=== PATIENT | female | born 1980 ===

== ENCOUNTER 2017-06-03 06:14 | Emergency (ER) | payer OTHER ==
[2017-06-03 06:25] VITALS: BP 134/86; PULSE 88; RESP 18; TEMP 98.8; O2SAT 100
--- NOTE | 2017-06-03 06:34 | C.PDOC ---
History Of Present Illness 37 year old female presents to the ER with a complaint of a nonproductive cough for the past 3 days, associated with chest wall pain. Denies SOB, nausea, or vomiting. Chief Complaint (Nursing): Cough, Cold, Congestion History Per: Patient History/Exam Limitations: no limitations Onset/Duration Of Symptoms: Days Current Symptoms Are (Timing): Still Present Location Of Pain: Other (Anterior chest wall) Sick Contacts (Context): None Associated Symptoms: Cough. denies: Sputum Ear Symptoms: Bilateral: None Recent travel outside of the [place]: No Past Medical History Reviewed: Historical Data, Nursing Documentation, Vital Signs Vital Signs: Last Vital Signs Temp 98.8 F 06/03/17 06:22 Pulse 88 06/03/17 06:22 Resp 18 06/03/17 06:22 BP 134/86 06/03/17 06:22 Pulse Ox 100 06/03/17 06:44 Family History: States: Unknown Family Hx - Social History Hx Alcohol Use: No Hx Substance Use: No - Immunization History Hx Influenza Vaccination: No Review Of Systems Constitutional: Negative for: Fever, Chills ENT: Negative for: Ear Pain, Ear Discharge Cardiovascular: Negative for: Chest Pain, Palpitations Respiratory: Positive for: Cough. Negative for: Sputum Gastrointestinal: Negative for: Nausea, Vomiting Musculoskeletal: Positive for: Other (Anterior chest wall) Physical Exam - Physical Exam Appears: Non-toxic, No Acute Distress Skin: Normal Color, Warm, Dry Head: Atraumatic, Normacephalic Eye(s): bilateral: Normal Inspection Ear(s): Bilateral: Normal Nose: Normal Oral Mucosa: Moist Throat: Normal, No Erythema, No Exudate Neck: Normal, Supple Chest: Symmetrical, No Tenderness Cardiovascular: Rhythm Regular Respiratory: No Rales, Rhonchi (Occasional), No Wheezing Gastrointestinal/Abdominal: Soft, No Tenderness Neurological/Psych: Oriented x3, Normal Speech ED Course And Treatment O2 Sat by Pulse Oximetry: 100 (room air) Pulse Ox Interpretation: Normal - Radiology CXR: Interpreted by Me, Viewed By Me CXR Interpretation: Yes: No Acute Disease. No: Infiltrates Progress Note: CXR ordered. Disposition - Disposition Referrals: FAMILY PROVIDER,NO [Primary Care Provider] - Disposition: HOME/ ROUTINE Disposition Time: 06:44 Condition: STABLE Additional Instructions: increased fluids by mouth Prescriptions: Azithromycin [Z-Carl] 250 mg PO DAILY #6 tab Ibuprofen [Motrin] 1 tab PO TID PRN #30 tab PRN Reason: Pain Promethazine DM [Phenergan DM Syrup] 5 ml PO QID #120 cup Instructions: Upper Respiratory Infection (ED) Forms: [facility] (Pashto), Gen Discharge Inst [place] Print Language: TURKMEN - POA Present On Arrival: None - Clinical Impression Clinical Impression: Bronchitis, Upper respiratory infection - Scribe Statement The provider has reviewed the documentation as recorded by the Scribspeedy Schilling All medical record entries made by the Sorayaibspeedy were at my direction and personally dictated by me. I have reviewed the chart and agree that the record accurately reflects my personal performance of the history, physical exam, medical decision making, and the department course for this patient. I have also personally directed, reviewed, and agree with the discharge instructions and disposition.
--- NOTE | 2017-06-03 06:36 | C.PDOC ---
History Of Present Illness 37 year old female presents to the ER with a complaint of a nonproductive cough for the past 3 days, associated with chest wall pain. Denies SOB, nausea, or vomiting. Chief Complaint (Nursing): Cough, Cold, Congestion History Per: Patient History/Exam Limitations: no limitations Onset/Duration Of Symptoms: Days Current Symptoms Are (Timing): Still Present Location Of Pain: Other (Anterior chest wall) Sick Contacts (Context): None Associated Symptoms: Cough. denies: Sputum Ear Symptoms: Bilateral: None Recent travel outside of the [place]: No Past Medical History Reviewed: Historical Data, Nursing Documentation, Vital Signs Vital Signs: Last Vital Signs Temp 98.8 F 06/03/17 06:22 Pulse 88 06/03/17 06:22 Resp 18 06/03/17 06:22 BP 134/86 06/03/17 06:22 Pulse Ox 100 06/03/17 06:22 Family History: States: Unknown Family Hx - Social History Hx Alcohol Use: No Hx Substance Use: No - Immunization History Hx Influenza Vaccination: No Review Of Systems Constitutional: Negative for: Fever, Chills ENT: Negative for: Ear Pain, Ear Discharge Cardiovascular: Negative for: Palpitations Respiratory: Positive for: Cough. Negative for: Shortness of Breath, Sputum Gastrointestinal: Negative for: Nausea, Vomiting Musculoskeletal: Positive for: Other (Chest wall pain) Physical Exam - Physical Exam Appears: Non-toxic, No Acute Distress Skin: Normal Color, Warm, Dry Head: Atraumatic, Normacephalic Eye(s): bilateral: Normal Inspection Ear(s): Bilateral: Normal Oral Mucosa: Moist Throat: Normal, No Erythema, No Exudate Neck: Normal, Supple Chest: Symmetrical, No Tenderness Cardiovascular: Rhythm Regular Respiratory: No Rales, Rhonchi (Occasional), No Wheezing Gastrointestinal/Abdominal: Soft, No Tenderness Neurological/Psych: Oriented x3, Normal Speech ED Course And Treatment O2 Sat by Pulse Oximetry: 100 (room air) Pulse Ox Interpretation: Normal Progress Note: CXR ordered. Disposition - Disposition Referrals: FAMILY PROVIDER,NO [Primary Care Provider] - - Scribe Statement The provider has reviewed the documentation as recorded by the Scribe Amador Schilling All medical record entries made by the Scribe were at my direction and personally dictated by me. I have reviewed the chart and agree that the record accurately reflects my personal performance of the history, physical exam, medical decision making, and the department course for this patient. I have also personally directed, reviewed, and agree with the discharge instructions and disposition.
--- NOTE | 2017-06-03 09:13 | RAD ---
Chest x-ray two views History: Cough. Comparison: None available. Findings: No focal infiltrate or effusion. Heart size within normal limits. Impression: No focal infiltrate or effusion.
== END 2017-06-03 07:04 | disposition home or self-care (01) ==
LOC: SUPCPDRO 06:14 → C.ER 06:14
DX: J40 Bronchitis, not specified as acute or chronic (principal); J06.9 Acute upper respiratory infection, unspecified